=== PATIENT | female | born 1985 | race Caucasian/White ===

== ENCOUNTER 2021-07-04 18:39 | Emergency (ER) | payer OTHER ==
[~2021-07-04] VITALS: Ht 160 cm; Wt 99.8 kg
[~2021-07-04 18:39] MED LIST: ALEVE220 MG PO; CYCLOBENZAPRINE10 MG PO; FIORICET 50-301 EACH PO; IBUPROFEN600 MG PO; MAXALT MLT10 MG PO; MIRENA1 EACH IY; MULTI VITAMIN1 EACH PO; PERCOCET 5-3251 EACH PO; TOPAMAX25 MG PO
--- NOTE | 2021-07-05 22:04 | EKG ---
[facility] [address] [facility] [place] [address] Signed Sinus tachycardia Nonspecific T wave abnormality Abnormal ECG No previous ECGs available Confirmed by SHERRIE COLLAZO MD ([id number]) on 07/05/2021 10:04:19 PM Electronically Signed By: SHERRIE COLLAZO MD 07/05/212203 PATIENT NAME: KANDY GIBBONS Electrocardiogram DATE OF : 89 PHYSICIAN: SHERRIE COLLAZO MD REPORT #: [id number] REPORT IS CONFIDENTIAL AND NOT TO BE RELEASED WITHOUT AUTHORIZATION
[2021-07-06] MEDS ORDERED: REGLAN10 MG PO (18:04)
[2021-07-06] MEDS ORDERED: ONDANSETRON ODT8 MG PO (18:04)
== END 2021-07-05 00:11 | disposition home or self-care (01) ==
LOC: ED 18:39
DX: U07.1 COVID-19 (principal); Z23 Encounter for immunization
CPT/HCPCS: 71045; 80053; 85025; 85379; 93005; 93010; 99285-25; M0243; Q0244; U0003

== ENCOUNTER 2021-07-06 11:04 | Emergency (ER) | payer OTHER ==
[~2021-07-06] VITALS: Ht 160 cm; Wt 99.8 kg
--- OUTSIDE RECORDS SUMMARY | 2021-07-06 11:12 | XMS ---
PreManage Notification: KANDY GIBBONS [employer] Events No recent Security Events currently on file CRITERIA MET - [facility] - 2 Visits in 30 Days CARE PROVIDERS There are no care providers on record at this time. Samir has no Care Guidelines for this patient. [facility] (12 MO.) [facility] NOTE: Visits indicate total known visits. ED/C VISIT TRACKING (12 MO.) [facility] [place] [facility] COMPLAINT: - FALL, LOC, FLU SYMPTOMS 07/04/2021 18:[address] [facility] [place] TYPE: Emergency COMPLAINT: - FLU SYMPTOMS INPATIENT VISIT TRACKING (12 MO.) No inpatient visits to display in this time frame [email or web address]
[2021-07-06] MEDS ORDERED: ONDANSETRON ODT8 MG PO (18:04)
[2021-07-06] MEDS ORDERED: REGLAN10 MG PO (18:04)
--- NOTE | 2021-07-06 21:15 | EKG ---
[facility] [address] [facility] [place], [place] [address] Signed Sinus tachycardia Otherwise normal ECG When compared with ECG of 04-JUL-2021 20:55, No significant change was found Confirmed by SHERRIE COLLAZO MD ([id number]) on 07/06/2021 9:15:32 PM Electronically Signed By: SHERRIE COLLAZO MD 07/06/21 2115 PATIENT NAME: BERONICA GIBBONSYAMILKA TEMPLE Electrocardiogram DATE OF : 89 PHYSICIAN: SHERRIE COLLAZO MD REPORT #: [id number] REPORT IS CONFIDENTIAL AND NOT TO BE RELEASED WITHOUT AUTHORIZATION
== END 2021-07-06 18:21 | disposition home or self-care (01) ==
LOC: ED 11:04
DX: K29.00 Acute gastritis without bleeding (principal); U07.1 COVID-19; G43.909 Migraine, unspecified, not intractable, without status migrainosus; Z79.899 Other long term (current) drug therapy; W19.XXXA Unspecified fall, initial encounter
CPT/HCPCS: 80053; 83735; 84484; 84703; 85025; 93005; 93010; 96361; 96374; 96375; 96376; 99284-25; A9270; J1790; J2405; J2550; J7030; J7121